=== PATIENT | male | born 1995 | race African-American/Black ===

== ENCOUNTER 2022-05-05 13:18 | Emergency (ER) | payer SELFPAY ==
[~2022-05-05] VITALS: Ht 180.3 cm; Wt 100.0 kg
[2022-05-05 13:33] VITALS: BP 143/77
== END 2022-05-05 17:31 | disposition left against medical advice (07) ==
LOC: ER 13:43
DX: Z53.21 Procedure and treatment not carried out due to patient leaving prior to being seen by health care provider (principal); J45.909 Unspecified asthma, uncomplicated
CPT/HCPCS: 93005